=== PATIENT | female | born 1975 | race Hispanic/Latino ===

== ENCOUNTER 2023-07-21 09:38 | Day surgery (SDC) | payer BC ==
[2023-07-20] MEDS: INDOMETHACIN 100 MG SUPP.RECT RC ONE (11:58)
[2023-07-21] VITALS (17 sets, daily range): BP systolic 114–139; BP diastolic 48–82; PULSE 52–78; RESP 12–19
[~2023-07-21] VITALS: Ht 162.6 cm; Wt 62.6 kg
[2023-07-21] MEDS ORDERED: LEVO75CA5 PO (10:10)
[2023-07-21] MEDS ORDERED: OXYB10TA30 PO (10:10)
[2023-07-21] MEDS: 0.9%NACL 1000ML 1,000 ML IV ONE (10:21)
[2023-07-21] MEDS ORDERED: IOHEXOL-350 50ML VIAL IV ONE (11:01)
[2023-07-21] MEDS ORDERED: FENTANYL CITRATE PF 50 MCG/1 ML 2ML VIAL ONE (11:40)
[2023-07-21] MEDS ORDERED: ONDANSETRON 4MG INJ ONE (11:40)
[2023-07-21] MEDS ORDERED: PROPOFOL 10 MG/ML 20ML VIAL IV ONE (11:51)
[2023-07-21] MEDS ORDERED: SIMETHICONE 40 MG/0.6 ML ML ONE (12:50)
[2023-07-21] MEDS: KETOROLAC 30MG VIAL (30MG/ML) ONE (13:23)
[2023-07-21] MEDS: FENTANYL CITRATE PF 50 MCG/1 ML 2ML VIAL ONE (13:24)
[2023-07-21] MEDS: ONDANSETRON 4MG INJ ONE (13:24)
== END 2023-07-21 14:10 | disposition home or self-care (01) ==
LOC: ENDO 09:38 → DAH 09:38 → ENDO 14:10
PROVIDERS: ATTEND Internal Medicine Gastroenterology
DX: R93.2 Abnormal findings on diagnostic imaging of liver and biliary tract (principal); K80.50 Calculus of bile duct without cholangitis or cholecystitis without obstruction; K21.9 Gastro-esophageal reflux disease without esophagitis; K29.50 Unspecified chronic gastritis without bleeding; R10.11 Right upper quadrant pain; K64.4 Residual hemorrhoidal skin tags; K57.30 Diverticulosis of large intestine without perforation or abscess without bleeding; E03.9 Hypothyroidism, unspecified; K76.0 Fatty (change of) liver, not elsewhere classified; N20.0 Calculus of kidney; Z79.899 Other long term (current) drug therapy; Z90.49 Acquired absence of other specified parts of digestive tract; Z86.010 Personal history of colon polyps
CPT/HCPCS: 84703; 36415; 43262; 74328; 43264; J3010 ×2; J7030 ×2; J2704; J2405 ×2; J1885; Q9967; A4620; A4215 ×2; A4223; A4657; A7002; A4222; A4221; A4663; A4606; C1769; C1773; 74330; J3490